=== PATIENT | male | born 1965 | race Two or more races ===

== ENCOUNTER 2018-01-07 18:00 | Emergency (ER) | payer OTHER ==
[~2018-01-07] VITALS: Ht 170.2 cm; Wt 96.2 kg
[2018-01-07] MEDS ORDERED: IBUPROFEN 600 MG TAB PO ONE (20:00)
[2018-01-07] MEDS ORDERED: LIDOCAINE 1% HCL (LOCAL ANESTH.) INJ 20ML MDV ONE (20:31)
[2018-01-07 20:32] VITALS: BP 165/86
[2018-01-07] MEDS ORDERED: NEOMYCIN-BACITRACIN-POLYM 15GM TOP OINT TOP SCH (22:15)
== END 2018-01-07 22:56 | disposition home or self-care (01) ==
LOC: ER 18:03
DX: S61.210A Laceration without foreign body of right index finger without damage to nail, initial encounter (principal); S61.212A Laceration without foreign body of right middle finger without damage to nail, initial encounter; S61.214A Laceration without foreign body of right ring finger without damage to nail, initial encounter; W45.8XXA Other foreign body or object entering through skin, initial encounter; Y93.89 Activity, other specified; Y92.89 Other specified places as the place of occurrence of the external cause; Y99.0 Civilian activity done for income or pay
CPT/HCPCS: 12004; 73130; 99284; J2001